=== PATIENT | female | born 1985 | race Caucasian/White ===

== ENCOUNTER 2018-08-27 11:39 | Emergency (ER) | payer SELFPAY ==
--- NOTE | 2018-08-27 13:23 | ER Document Report ---
ED Medical Screen (RME) - General Chief Complaint: OB Problem (<20wks) Stated Complaint: VAGINAL BLEEDING Time Seen by Provider: 08/27/18 13:17 Mode of Arrival: Ambulatory Information source: Patient Notes: 33-year-old female 2 para 1, approximately 7 weeks who presents to the emergency room with vaginal bleeding. Patient states she started spotting 2 days ago. She denies any passage of tissue. She denies any cramping or abdominal pain. She has had some nausea mostly in the morning. She does report that she is Rh-. Her only medicines are vitamins. She denies any allergies. TRAVEL OUTSIDE OF THE [place] IN LAST 30 DAYS: No - HPI Onset: Yesterday Onset/Duration: Gradual Quality of pain: No pain Severity: None Pain Level: Denies Associated Symptoms: None Exacerbated by: Denies Relieved by: Denies Similar symptoms previously: No Recently seen / treated by doctor: No - Related Data Smoking: Non-smoker Frequency of alcohol use: None Drug Abuse: None Allergies/Adverse Reactions: No Known Allergies Allergy (Verified 08/27/18 11:41) Past Medical History - General Information source: Patient - Social History Cigarette use (# per day): No Chew tobacco use (# tins/day): No Frequency of alcohol use: None Drug Abuse: None Lives with: Family Family history: None - Medical History Medical History: Negative Renal/ Medical History: Denies: Hx Peritoneal Dialysis Past Surgical History: Reports: Hx Breast Surgery - reduction 2008, Hx Section - x1 Review of Systems - Review of Systems Constitutional: denies: See HPI, Fever EENT: No symptoms reported Cardiovascular: No symptoms reported Respiratory: No symptoms reported Gastrointestinal: No symptoms reported Genitourinary: See HPI Female Genitourinary: See HPI Musculoskeletal: No symptoms reported Skin: No symptoms reported Hematologic/Lymphatic: No symptoms reported Neurological/Psychological: No symptoms reported Physical Exam - Vital signs Vitals: Temp Pulse Resp BP Pulse Ox 98.1 F 82 14 129/92 H 98 08/27/18 11:44 08/27/18 11:44 08/27/18 11:44 08/27/18 11:44 08/27/18 11:44 Notes: Physical exam: GENERAL: Patient is alert and oriented x3, no acute distress. HEAD: Atraumatic, normocephalic. EYES: Pupils equal round and reactive to light, extraocular movements intact, sclera anicteric, conjunctiva are normal. ENT: TMs normal, nares patent, oropharynx clear without exudates. Moist mucous membranes. NECK: Normal range of motion, supple without obvious mass or JVD. LUNGS: Breath sounds clear to auscultation bilaterally and equal. No wheezes rales or rhonchi. HEART: Regular rate and rhythm without murmurs, rubs or gallops. ABDOMEN: Soft, normoactive bowel sounds. No tenderness to palpation. No guarding, no rebound. No masses appreciated. EXTREMITIES: Normal range of motion, no pitting or edema. No clubbing or cyanosis. NEUROLOGICAL: Cranial nerves II through XII grossly intact. Normal speech, moving all extremities. PSYCH: Normal mood, normal affect. SKIN: Warm, Dry, normal turgor, no rashes or lesions noted. Course - Re-evaluation Re-evalutation: 08/27/18 16:14 Note: The vaginal ultrasound showed no evidence of IUP. The ultrasound was actually done before the return of the blood test. The serum quantitative test is undetectable (i.e. negative). So the ultrasound is consistent with the blood test. The issue for this patient is that she has had 3 tests that were +10 days ago. The patient is Rh-. My concern is that given the 3+ tests and now the vaginal bleeding, could she develop antibodies to future Rh+ babies. I discussed the question with Dr. Doss who is covering for OB and he thought that giving RhoGam would be fine. I have spoken with blood bank and they will send up RhoGam for the patient. I have discussed the issue in detail with both the patient and her and they are agreeable to the RhoGam. - Vital Signs Vital signs: Temp Pulse Resp BP Pulse Ox 98.3 F 84 20 119/89 H 98 08/27/18 16:10 08/27/18 16:10 08/27/18 16:10 08/27/18 16:10 08/27/18 16:10 - Laboratory Result Diagrams: 08/27/18 14:01 08/27/18 14:01 Laboratory results interpreted by me: 08/27/18 14:01 RBC 5.45 H Hgb 16.4 H - Diagnostic Test Radiology reviewed: Image reviewed, Reports reviewed - Vaginal ultrasound shows no evidence of IUP. Doctor's Discharge - Discharge Clinical Impression: Vaginal bleeding Condition: Stable Disposition: HOME, SELF-CARE Additional Instructions: As we discussed, serum test was negative for any . Given that you have had 3 recent positive test and your blood type is Rh-, you were given RhoGam in an attempt to protect you from developing antibodies against future Rh+ babies. Would follow-up with your doctors at [facility] Return to the emergency room for any abdominal pain, worsening bleeding or any concerns or getting worse. Referrals: FLORENCE LOAIZA MD [Primary Care Provider] - Follow up as needed
[2018-08-27 14:16] LABS: ABSOLUTE BASOPHILS # (AUTO) 0.1 10^3/uL (0.0-0.2); ABSOLUTE EOSINOPHILS # (AUTO) 0.2 10^3/uL (0.0-0.6); ABSOLUTE LYMPHOCYTES (AUTO) 1.8 10^3/uL (0.5-4.7); ABSOLUTE MONOCYTES (AUTO) 0.5 10^3/uL (0.1-1.4); ABSOLUTE NEUT (AUTO) 3.9 10^3/uL (1.7-8.2); BASOPHILS % (AUTO) 0.8 % (0-2); EOSINOPHILS % (AUTO) 3.4 % (0-6); HEMOGLOBIN 16.4 g/dL (12.0-15.5); LYMPHOCYTES % (AUTO) 28.1 % (13-45); MEAN CORPUSCULAR HGB CONC 34.8 g/dL (32.0-36.0); MEAN CORPUSCULAR VOLUME 86 fl (80-97); MONOCYTES % (AUTO) 7.6 % (3-13); PLATELET COUNT 264 10^3/uL (150-450); RED BLOOD COUNT 5.45 10^6/uL (3.72-5.28); RED CELL DISTRIBUTION WIDTH 13.7 % (11.5-14.0); SEGMENTED NEUTROPHILS % (AUTO) 60.1 % (42-78); TOTAL CELLS COUNTED % (AUTO) 100 %; WHITE BLOOD COUNT 6.5 10^3/uL (4.0-10.5)
[2018-08-27 14:28] LABS: ANION GAP 15 (5-19); BLOOD UREA NITROGEN 11 mg/dL (7-20); CALCIUM 9.9 mg/dL (8.4-10.2); CARBON DIOXIDE 23 mmol/L (22-30); CHLORIDE 105 mmol/L (98-107); GLUCOSE 90 mg/dL (75-110); POTASSIUM 4.5 mmol/L (3.6-5.0); SODIUM 142.6 mmol/L (137-145)
--- NOTE | 2018-08-27 15:11 | RADIOLOGY REPORT (SQ) ---
EXAM DESCRIPTION: U/S OB TRANSVAGINAL W/O DOP COMPLETED DATE/TIME: 08/27/2018 2:37 pm REASON FOR STUDY: 7 weeks - vaginal bleeding COMPARISON: None. TECHNIQUE: Transvaginal static and realtime grayscale images acquired of the pelvis. Additional ronald cted spectral and color Doppler images recorded. All images stored on PACs. bHCG: Not available. CLINICAL DATES: 6 weeks, 5 days LIMITATIONS: None. FINDINGS: FETUS: No intrauterine gestation identified. ULTRASOUND EGA: Not applicable ULTRASOUND ROSENDO: Not applicable EFW: Not applicable CRL: Not identified FHR: Not identified UTERUS: No masses. No anomalies. 7.2 x 4.1 x 5.4 cm. CERVICAL LENGTH: Closed. RIGHT ADNEXA: Normal ovary with normal vascular flow. No adnexal free fluid. No adnexal masses. 3.3 x 2.1 x 3.3 cm. LEFT ADNEXA: Normal ovary with normal vascular flow. No adnexal free fluid. No adnexal masses. 3.3 x 1.9 x 1.7 cm. FREE FLUID: None. OTHER: No other significant finding. IMPRESSION: No candidate gestational sac identified in the endometrial cavity. No ultrasound source of hemorrhage is evident. Early of unknown location. Please note that occult ectopic pre gnancy is not strictly excluded in the setting of hemorrhage in early of unknown location. Recommend ectopic precautions and clinical follow-up including serial beta HCG to ensure resolution and exclude ectopic . Trimester of : First - 0 to 13 weeks. TECHNICAL DOCUMENTATION: JOB ID: [id number] [employer]- All Rights Reserved Reading location - IP/workstation name: [email or web address]
[2018-08-27 17:07] VITALS: BP 122/74
== END 2018-08-27 17:10 | disposition home or self-care (01) ==
LOC: ER 11:39
DX: O46.91 Antepartum hemorrhage, unspecified, first trimester (principal); O26.891 Other specified pregnancy related conditions, first trimester; R11.0 Nausea; Z3A.01 Less than 8 weeks gestation of pregnancy
CPT/HCPCS: 99284; 96372; 86900; 86901; 36415; 86850; 84702; 85025; 80048; 76817; J2790